=== PATIENT | male | born 1960 | race Caucasian/White ===

== ENCOUNTER 2023-03-11 21:57 | Observation (INO) | payer BC ==
[2023-03-11 22:26] LABS: BASOPHILS ABSOLUTE AUTO 0.04 K/uL (0.00-0.20); BASOPHILS PERCENT AUTO 0.5 % (0.0-2.0); EOSINOPHILS ABSOLUTE AUTO 0.37 K/uL (0.00-0.50); EOSINOPHILS PERCENT AUTO 4.5 % (0.0-5.0); HEMATOCRIT 39.7 % (39.0-49.0); HEMOGLOBIN 13.8 g/dL (13.1-16.8); LYMPHOCYTES ABSOLUTE AUTO 2.03 K/uL (0.50-3.50); LYMPHOCYTES PERCENT AUTO 24.6 % (10.0-50.0); MEAN CORPUSCULAR HGB CONC 34.8 g/dL (31.7-36.0); MEAN CORPUSCULAR VOLUME 86.3 fL (84.0-98.0); MONOCYTES ABSOLUTE AUTO 0.78 K/uL (0.00-1.00); MONOCYTES PERCENT AUTO 9.4 % (2.0-14.0); NEUTROPHILS ABSOLUTE AUTO 5.04 K/uL (1.40-7.00); PLATELET COUNT,PLT 329 K/uL (150-350); RED CELL DISTRIBUTION WIDTH 12.2 % (11.2-14.1); WHITE BLOOD CELL COUNT,WBC 8.3 K/uL (4.0-10.2)
[2023-03-11] MEDS: Albuterol/Ipratropium 3.0-0.5 MG/3 ML Neb Soln NEB ONE (22:40)
[2023-03-11 22:53] LABS: ALBUMIN 3.6 g/dL (3.4-5.0); ANION GAP 11.1 meq/L (7-15); BILIRUBIN TOTAL 0.3 mg/dL (0.2-1.0); CALCIUM 8.5 mg/dL (8.5-10.1); CARBON DIOXIDE,CO2 25.9 mmol/L (21.0-32.0); CREATININE 1.06 mg/dL (0.51-1.17); EST CRCL DRUG DOSING (CG) 76.49 mL/min; POTASSIUM,K 3.8 mmol/L (3.5-5.1); PROTEIN TOTAL,TP 6.9 g/dL (6.4-8.2); PROTHROMBIN TIME 9.9 SEC (9.0-11.1)
[2023-03-11] MEDS: Albuterol 0.083% 2.5 MG/3 ML Neb Soln NEB PRN (22:55)
[2023-03-11] MEDS: methylPREDNISolone Sodium Succinate 125 MG/2 ML SDV IVPUSH ONE (23:04)
[2023-03-12 07:21] VITALS: BP 138/76; PULSE 83
== END 2023-03-12 09:43 | disposition home or self-care (01) ==
LOC: LL.ED 21:57 → LL.MS 03-12 01:33 → MERGE 03-12 01:33
PROVIDERS: ADMIT Physician Assistant; ATTEND Physician Assistant
DX: J44.9 Chronic obstructive pulmonary disease, unspecified (principal); R06.02 Shortness of breath; R06.00 Dyspnea, unspecified; I10 Essential (primary) hypertension; E78.00 Pure hypercholesterolemia, unspecified; Z87.891 Personal history of nicotine dependence; Z99.81 Dependence on supplemental oxygen; Z79.899 Other long term (current) drug therapy; Z88.6 Allergy status to analgesic agent
CPT/HCPCS: 36415; 71046; 80053; 83880; 84484; 85025; 85610; 93005; 96374; 99285-25; G0378; J2930; J7613-GY; J7620-GY